=== PATIENT | male | born 1995 | race African-American/Black ===

== ENCOUNTER 2017-11-02 14:31 | Emergency (ER) | payer SELFPAY ==
[2017-11-02 14:38] VITALS: BP 151/78
--- NOTE | 2017-11-02 15:01 | ER Document Report ---
HPI - HPI Patient complains to provider of: right eye pain Onset: Other Quality of pain: Achy Severity: Mild Pain Level: 1 Context: Presents to emergency department with complaints of left eye irritation. Patient reports a few days ago he noted the veins in his left eye was reddened. He also noted that his left eye was pulsating. Denies drainage, He denies pain. No trauma. Patient does not wear contacts or glasses. Patient denies other symptoms such as fever trauma vomiting diarrhea. Not been exposed to anybody with bacterial conjunctivitis. Associated Symptoms: None Exacerbated by: Denies Relieved by: Denies Similar symptoms previously: No Recently seen / treated by doctor: No - CONSTITUTIONAL Constitutional: DENIES: Fever, Chills - EENT EENT: REPORTS: Ear Pain. DENIES: Sore Throat, Eye problems - NEURO Neurology: DENIES: Headache, Weakness, Vision blurred - CARDIOVASCULAR Cardiovascular: DENIES: Chest pain - RESPIRATORY Respiratory: DENIES: Trouble Breathing, Coughing - GASTROINTESTINAL Gastrointestinal: DENIES: Abdominal Pain, Black / Bloody Stools - URINARY Urinary: DENIES: Dysuria, Urgency, Frequency - REPRODUCTIVE Reproductive: DENIES: : - MUSCULOSKELETAL Musculoskeletal: DENIES: Extremity pain Past Medical History - General Information source: Patient, Friend - Social History Smoking Status: Current Every Day Smoker Chew tobacco use (# tins/day): No Frequency of alcohol use: None Drug Abuse: None Family History: Reviewed & Not Pertinent Patient has suicidal ideation: No Patient has homicidal ideation: No - Medical History Medical History: Negative Renal/ Medical History: Denies: Hx Peritoneal Dialysis Surgical Hx: Negative Vertical Provider Document - CONSTITUTIONAL Agree With Documented VS: Yes Exam Limitations: No Limitations General Appearance: WD/WN, No Apparent Distress - nontoxic looking - INFECTION CONTROL TRAVEL OUTSIDE OF THE [place] IN LAST 30 DAYS: No - HEENT HEENT: Atraumatic, Normocephalic, PERRLA. negative: Conjuctival Injection - no conjunctival injection, no drainage,extraocular movements intact, - NECK Neck: Normal Inspection, Supple - RESPIRATORY Respiratory: No Respiratory Distress - CARDIOVASCULAR Cardiovascular: Regular Rate - MUSCULOSKELETAL/EXTREMETIES Musculoskeletal/Extremeties: MAEW, FROM - NEURO Level of Consciousness: Awake, Alert, Appropriate Motor/Sensory: No Motor Deficit - DERM Integumentary: Warm, Dry Course - Re-evaluation Re-evalutation: 11/02/17 Pt looks good, eye movement intact, no redness, no drainage. pt was instructed on antihistamines. Patient was also instructed on the importance of follow-up with primary care provider /ophthalmology. He verbalized understanding - Vital Signs Vital signs: Temp Pulse Resp BP Pulse Ox 99.3 F 72 16 151/78 H 99 11/02/17 14:36 11/02/17 14:36 11/02/17 14:36 11/02/17 14:36 11/02/17 14:36 Discharge - Discharge Clinical Impression: Irritation of left eye Condition: Stable Disposition: HOME, SELF-CARE Additional Instructions: *You have been evaluated for LEFT eye irritation *use Over the counter antihistamine eye drops *Good hand washing *Follow up with an band instrument maker for continued irritation *Return to ED for worsening condition, changes, needs, drainage, pain, concerns , visual changes Monitor your blood pressure. Your blood pressure was elevated today. This may be because you were anxious, in pain or because you need medication. It is important to follow up with your primary care provider for full evaluation. Forms: Elevated Blood Pressure
== END 2017-11-02 15:13 | disposition home or self-care (01) ==
LOC: ER 14:31
DX: H57.8 Other specified disorders of eye and adnexa (principal); H57.11 Ocular pain, right eye
CPT/HCPCS: 99283